=== PATIENT | male | born 1930 | race Caucasian/White ===

== ENCOUNTER → 2018-05-26 07:45 | Outpatient (CLI) | payer MEDICARE, OTHER | END | disposition home or self-care (01) | LOC: D.RAD 07:45 | PROVIDERS: ATTEND Orthopaedic Surgery | DX: M25.512 Pain in left shoulder (principal) ==

== ENCOUNTER 2018-06-24 05:15 | Day surgery (SDC) | payer MEDICARE, OTHER ==
[2018-06-18 10:28] LABS: BASOPHILS 0.6 % (0-2); EOSINOPHILS 1.5 % (0-7); HEMATOCRIT 42.4 % (42.0-54.0); HEMOGLOBIN 14.7 g/dL (13.5-17.5); IMMATURE GRANULOCYTES 0.3 % (0-5); LYMPHOCYTES 12.9 % (15-50); MCH 33.8 pg (26.0-34.0); MCHC 34.7 g/dL (31.0-37.0); MCV 97.5 fL (80.0-100.0); MEAN PLATELET VOLUME 9.8 fL (7.4-10.4); MONOCYTES 12.2 % (2-11); NEUTROPHILS 72.5 % (40-80); PLATELET COUNT 274 10x3/uL (130-400); RBC 4.35 10x6/uL (4.20-6.10); RDW 12.7 % (11.5-14.5); WBC 7.9 10x3/uL (4.8-10.8)
[2018-06-18 10:36] LABS: CALCIUM 8.9 mg/dL (8.5-10.1); CARBON DIOXIDE 31.1 mmol/L (21.0-32.0); CREATININE - SERUM 1.1 mg/dL (0.6-1.3); POTASSIUM - SERUM 4.1 mmol/L (3.5-5.1)
[~2018-06-24] VITALS: Ht 177.8 cm; Wt 79.4 kg
[~2018-06-24 05:15] MED LIST: ALPHAGAN P 0.155 ML EACH EYE; SYNTHROID75 MCG PO; XARELTO20 MG PO
[2018-06-24] MEDS ORDERED: METOPROLOL TART25 MG PO (05:56)
[2018-06-24] MEDS ORDERED: LISINOPRIL5 MG PO (05:57)
[2018-06-24] MEDS ORDERED: ZOCOR20 MG PO (05:58)
[2018-06-24 06:03] VITALS: BP 130/71; Ht 177.8 cm; Wt 79.4 kg
--- NOTE | 2018-06-24 08:37 | NUR ---
VANIA MIRANDA ON PT ALSO IN HOLDING PER MAR
--- NOTE | 2018-06-24 16:49 | NUR ---
1135 UP TO BATHROOM TO VOID WITHOUT DIFFICULTY. 1235 IV DC'D. CATHETER INTACT. PRESSURE HELD UNTIL BLEEDING STOPPED. BANDAID APPLIED.
== END 2018-06-24 13:07 | disposition home or self-care (01) ==
LOC: D.OPS 05:15 → D.PAN 07:30 → D.OPS 07:30
PROVIDERS: ATTEND Orthopaedic Surgery
DX: M65.812 Other synovitis and tenosynovitis, left shoulder (principal); M19.012 Primary osteoarthritis, left shoulder; M75.42 Impingement syndrome of left shoulder; M75.122 Complete rotator cuff tear or rupture of left shoulder, not specified as traumatic; S43.432A Superior glenoid labrum lesion of left shoulder, initial encounter; S46.112A Strain of muscle, fascia and tendon of long head of biceps, left arm, initial encounter; X58.XXXA Exposure to other specified factors, initial encounter; Z01.812 Encounter for preprocedural laboratory examination

== ENCOUNTER 2018-08-23 10:26 | Outpatient (CLI) | payer MEDICARE, OTHER | END 2018-08-23 13:00 | disposition home or self-care (01) | LOC: D.CATH 10:26 | DX: I48.91 Unspecified atrial fibrillation (principal) ==

== ENCOUNTER 2019-02-01 10:46 | Outpatient (CLI) | payer MEDICARE, OTHER ==
[~2019-02-01] VITALS: Ht 177.8 cm; Wt 77.3 kg
--- NOTE | ~2019-02-01 | HEMODYNAMI ---
PATIENT:YURY TEJADA MEDICAL RECORD: [id number] : 32 LOCATION:[facility] ADMISSION DATE: 02/01/19 Generatedon:02/01/201914:00 Patient name: YURY TEJADA Patient #: [id number] SSN: [id number] : 1930 Date of study: 02/01/2019 Page: Of Hemodynamic Procedure Report Patient Data Patient Demographics Procedure consent was obtained First Name: YURY Gender: Male Last Name: TERRELL : 1930 [facility] Initial: J Age: 88 year(s) Patient #: [id number] Race: Unknown SSN: [id number] Additional ID: [id number] Contact details [address]: [address] [place] [address] State: [place] City: [place] Zip code: [address] Past Medical History Allergies: No known allergies Admission Admission Data Admission Date: 02/01/2019 Admission Time: 10:46 Lab Results Lab Result Date: 02/01/2019 Lab Result Time: 0:00 Biochemistry Name Units Result Min Max BUN mg/dl 16 --(---*)-- 7 18 Creatinine mg/dl 1.2 --(---*)-- 0.6 1.3 eGFR ml/min 61.70362 *-(----)-- 90 120 NONAFRICAN CBC Name Units Result Min Max Hemoglobin g/dl 16.5 --(--*-)-- 13.5 17.5 Procedure Procedure Types Cath Procedure Diagnostic Procedure PPM/ICD Permanent Pacer Generator Exg. ICD GEN EXCHANGE (3 LEAD) Internal Cardiac Defib. Bi-David Sedation Charges Moderate Sedation up to 15 minutes Procedure Description Procedure Date Procedure Date: 02/01/2019 Procedure Start Time: 13:32 Procedure End Time: 13:56 Procedure Staff Name Function Justino Marquse MD Performing Physician Casey Siu MD Assisting physician Katelyn Dye RT Monitor Danielle Olivier RT Monitor Jackson Rajan RN Nurse Gabriela Apodaca RT Scrub Procedure Data Cath Procedure Fluoroscopy Diagnostic fluoroscopy Total fluoroscopy Time: 0 time: 0 min min Estimated blood loss: 5 ml Procedure Complications No complications Procedure Medications Medication Administration Route Dosage 0.9% NaCl I.V. 100 ml/hr Oxygen etCO2 Nasal cannula 2 l/min Lidocaine 1% added to field 20 Ancef (1Gm/50ml NS) I.V.P.B 1 g Ancef Irrigation Topical 1 g (1gm/500ml NS) Versed I.V. 2 mg Fentanyl I.V. 100 mcg Versed I.V. 1 mg Hemodynamics Rest Heart Rate: 80 (bpm) Snapshots Pre Cath Intra NCS Post Cath Vital Signs Time Heart Resp SPO2 etCO2 NIBP (mmHg) Rhythm Pain Sedation Rate (ipm) (%) (mmHg) Status Level (bpm) 13:20:30 70 16 100 0 166/93(141) Paced 0 (11) 10(A) , No pain 13:24:48 70 12 97 16.7 134/78(115) Paced 0 (11) 10(A) , No pain 13:28:58 69 17 99 22.1 129/68(108) Paced 0 (11) 10(A) , No pain 13:33:02 70 14 97 18.3 129/74(107) Paced 0 (11) 10(A) , No pain 13:37:10 70 16 97 22.1 117/71(94) Paced 0 (11) 9(A) , No pain 13:41:16 59 17 96 20.5 110/66(93) Paced 0 (11) 9(A) , No pain 13:46:12 69 20 96 22.1 120/70(101) Paced 0 (11) 9(A) , No pain 13:50:16 71 15 98 19.8 125/70(106) Paced 0 (11) 9(A) , No pain 13:54:22 69 15 98 18.3 129/72(106) Paced 0 (11) 9(A) , No pain Medications Time Medication Route Dose Verified Delivered Reason Notes Effectiv eness by by 13:24:02 0.9% NaCl I.V. 100 Jackson Jackson Per ml/hr Mohini Rajan physician RN RN 13:24:12 Oxygen etCO2 2 Jackson Jackson for low 02 Nasal l/min Mohini Rajan sats cannula RN RN 13:24:30 Lidocaine added 20ml Jackson Jackson for local 1% to vial Lorigan Lorigan anesthetic field X2 RN RN 13:24:44 Ancef I.V.P.B 1 g Jackson Jackson Per (1Gm/50ml Lorigan Lorigan physician NS) RN RN 13:24:57 Ancef Topical 1 g Jackson Jackson used for Irrigation Lorigan Lorigan procedure (1gm/500ml RN RN NS) 13:32:07 Versed I.V. 2 mg Jackson Jackson for Lorigan Lorigan sedation RN RN 13:32:54 Fentanyl I.V. 100 Jackson Jackson for mcg Lorigan Lorigan sedation RN RN 13:35:04 Versed I.V. 1 mg Jackson Jackson for Lorigan Lorigan sedation RN windows mobile developer Log Time Note 12:45:35 Jackson Rajan RN sent for patient. Start room use. 12:45:36 Time tracking: Regular hours (M-F 7:00 - 5:00) 12:45:48 Plan of Care:Hemodynamics will remain stable., Cardiac rhythm will remain stable., Comfort level will be maintained., Respiratory function will remain adequate., Patient/ family verbilizes understanding of procedure., Procedure tolerated without complication., Recovers from procedure without complications.. 12:56:05 Informed consent obtained and on chart 12:57:46 Lab Result : Hemoglobin 16.5 g/dl 12:57:46 Lab Result : eGFR NONAFRICAN 61.90279 ml/min 12:57:46 Lab Result : BUN 16 mg/dl 12:57:46 Lab Result : Creatinine 1.2 mg/dl 12:59:04 Medtronic cash posting representative DILLON OSBORN present for procedure. 13:00:16 Procedure Status PPM/ Gen Change/ Lead Revision/ Temp. 13:00:36 Patient received from Pre/Post Procedure Room to CCL 3 Alert and oriented. Tansferred to table in Supine position. 13:13:30 Warm blankets on for patient comfort. 13:13:57 Correct patient and procedure confirmed by team. 13:13:58 ECG and BP/O2 sat monitors applied to patient. 13:14:34 H&P Date Dictated: 02/01/2019 H&P Addendum completed by physician on day of procedure. (MUST COMPLETE FOR ALL OUTPATIENTS), New H&P dictated by physician.. 13:14:36 Pre-procedure instructions explained to patient. 13:14:38 Pre-op teaching completed and patient verbalized understanding. 13:14:41 Family in patients room. 13:14:43 Patient NPO since Midnight. 13:14:52 Patient allergic to No known allergies 13:14:58 Is the patient allergic to Iodine/contrast media? No. 13:15:04 Was the patient premedicated? Yes 13:15:08 Is patient on blood thinner?Yes 13:17:01 LAST DOSE OF XARELTO, Thursday01-30-2019. 13:17:53 Patient diabetic? No. 13:17:57 ----Pre-sedation anethsthesia assessment.---- 13:18:01 Previous problem with sedation/anesthesia? No ? 13:18:06 Snore? Yes 13:18:09 Sleep apnea? No 13:18:11 Deviated septum? No 13:18:13 Opens mouth fully? Yes 13:18:16 Sticks out tongue? Yes 13:18:26 Airway obstruction? No ? 13:18:35 Dentures? Yes BOTH IN TIGHT 13:18:44 Vital chart was started 13:19:52 Patient pain scale 0/10 ?. 13:20:01 IV patent on arrival in left hand with 0.9% NaCl at [facility]. 13:20:07 Lab results completed and on chart. 13:20:17 Left chest area was prepped with chlora-prep and draped in sterile fashion 13:20:20 Alarms reviewed by R. N. 13:20:21 Sharps counted by scrub and verified by R.N. 13:22:32 Use device set KWABENA PPM 13:22:39 2-0 Ticron Multipack ([id number]) opened to sterile field. 13:22:40 3-0 Vicryl Single Pack [id number] opened to sterile field. 13:22:41 5-0 Monocryl PS2 [id number] opened to sterile field. 13:22:43 Cautery Tip Account General Manager opened to sterile field. 13:22:44 Cautery Pushbutton Pencil opened to sterile field. 13:22:46 Mepilex Dressing ([id number]) opened to sterile field. 13:23:23 Pre sharps counted by scrub and verified by RN: Sutures: 7; Sponges: 5; Stick needles: 2; Skin needles: 0; Blade: 1; Cautery: 1 13:23:43 Grounding pad site Left thigh. 13:23:46 Grounding pad site free from injury. 13:24:02 0.9% NaCl 100 ml/hr I.V. was administered by Jackson Rajan RN; Per physician; Verbal order read back and verified. 13:24:12 Oxygen 2 l/min etCO2 Nasal cannula was administered by Jackson Rajan RN; for low 02 sats; Verbal order read back and verified. 13:24:30 Lidocaine 1% 20ml vial X2 added to field was administered by Jackson Rajan RN; for local anesthetic; Verbal order read back and verified. 13:24:44 Ancef (1Gm/50ml NS) 1 g I.V.P.B was administered by Jackson Rajan RN; Per physician; Verbal order read back and verified. 13:24:57 Ancef Irrigation (1gm/500ml NS) 1 g Topical was administered by Jackson Rajan RN; used for procedure; Verbal order read back and verified. 13:27:37 Physician arrived 13:27:38 --------ALL STOP TIME OUT------ 13:27:39 Final Timeout: patient, procedure, and site verified with staff and physician. All members of the team are in agreement. 13:27:45 Left chest site verified by team. 13:28:01 Fire Safety Assessment: A--An alcohol-based skin anteseptic being used preoperatively., B--The operative or invasive procedure is being performed above the xiphoid process or in the oropharynx., C--Open oxygen or nitrous oxide is being used. 13:28:08 Physical assessment completed. ASA score P 2 - A patient with mild systemic disease as per Justino Marques MD. 13:28:14 Sedation plan: IV Moderate Sedation Medication:Versed, Fentanyl 13::44 Baseline sample Acquired. 13:29:16 Rhythm: paced 13:29:19 Full Disclosure recording started 13:32:03 Procedure started. 13:32:07 Versed 2 mg I.V. was administered by Jackson Rajan RN; for sedation; Verbal order read back and verified. 13:32:25 Lidocaine 1% was administered to left subclavicular area by Casey Siu MD . 13:32:54 Fentanyl 100 mcg I.V. was administered by Jackson Rajan RN; for sedation; Verbal order read back and verified. 13:33:22 Claria MRI Quad RECRUITING INTERN-D SureScan ([id number]) opened to sterile field. 13:34:53 Incision made to left subclavicular area. 13:35:04 Versed 1 mg I.V. was administered by Jackson Rajan RN; for sedation; Verbal order read back and verified. 13:36:26 Generator pocket made/opened. 13:36:37 AICD was removed.. 13:37:03 AICD was inserted subcutaneously to left chest. 13:37:42 Generator was sutured in place with 2-0 ticron. 13:37:45 Device pocket was irrigated with Ancef. 13:40:34 Subcutaneous closure was completed with 3-0 vicryl plus. 13:42:49 Skin closure was completed with 5-0 monocryl. 13:46:39 Lt Chest incision was dressed with Mepilex dressing. 13:46:45 Procedure ended.(Physican Out) 13:48:07 Fluoroscopy time 00.00 minutes. 13:50:13 Post sharps counted by scrub and verified by RN: Sutures: 7; Sponges: 5; Stick needles: 2; Skin needles: 0; Blade: 1; Cautery: 1 13:51:15 Parameters-- Generator: Mode: DDDR. Lower Rate: 70bpm. Upper Rate: 130bpm. 13:51:29 Sharps counted by scrub and verified by R.N. 13:51:32 Insertion/operative site no bleeding no hematoma. 13:51:47 Post Chest area:stable 13:52:06 Post-procedure physical assessment completed. ASA score P 2 - A patient with mild systemic disease as per Justino Marques MD. 13:52:12 Post procedure rhythm: paced 13:52:16 Estimated blood loss: 5 ml 13:52:19 Post procedure instruction explained to patient.Patient verbalizes understanding. 13:52:20 Patient needs reinforcement of post procedure teaching. 13:53:23 Procedure type changed to Cath procedure, Diagnostic procedure, PPM/ICD, Permanent Pacer Generator Exg., ICD GEN EXCHANGE (3 LEAD), Internal Cardiac Defib. Bi-David, Sedation Charges, Moderate Sedation up to 15 minutes 13:53:56 Procedure and supply charges have been captured, reviewed, submitted and are correct. 13:55:43 Procedure Complication : No complications 13:55:49 Vital chart was stopped 13:55:56 Operative report dictated upon procedure completion. 13:55:57 See physician's report for complete and final results. 13:56:06 Report given to Pre/Post Procedure Room. 13:56:10 Patient transfered to Pre/Post Procedure Room with Stretcher. 13:56:14 Procedure ended. 13:56:14 Full Disclosure recording stopped 13:56:16 End room use (Document Last) Device Usage Item Name Manufacture Quantity Catalog Hospital Part Current Minima l Lot# / Serial# Number Charge Number Stock Stock Code 2-0 Ticron Ethicon 1 [id number] 5 Multipack ([id number]) 3-0 Vicryl Ethicon 1 [id number] [id number] [id number] 5 Single Pack [id number] 5-0 Monocryl Ethicon 1 [id number] 176893 885907 5 PS2 Y495G Cautery Tip Microtek 1 [id number] [id number] [id number] [id number] 5 Account General Manager [employer] Cautery Microtek 1 [id number] 89870 [id number] 5 Pushbutton [employer] Pencil Mepilex Cardinal 1 [id number] 302405 588999 243965 5 Dressing Health (929955) Claria MRI Medtronic 1 [id number] 0 [id number] Quad RECRUITING INTERN-D EXP:07/19/2019 SureScan ([id number]) Signature Audit [place] Stage Time Signature Unsigned Intra-Procedure 02/01/2019 Danielle 1:58:37 PM Charline RT(R) (CV) Intra-Procedure 02/01/2019 Jackson 1:59:04 PM Mohini OVERTON Intra-Procedure 02/01/2019 Justino Branch 2:00:24 PM Cristian [address] [id number] [place] [address]
[~2019-02-01 10:46] MED LIST changes: +LANOXIN125 MCG PO; +LISINOPRIL5 MG PO; +METOPROLOL TART25 MG PO; +MULTAQ400 MG PO; +ZESTRIL10 MG PO; +ZOCOR20 MG PO
[2019-02-01] MEDS ORDERED: ALPHAGAN P 0.155 ML EACH EYE (11:08)
[2019-02-01 11:23] VITALS: BP 149/77; Ht 177.8 cm; Wt 77.3 kg
[2019-02-01 11:33] LABS: HEMATOCRIT 48.2 % (42.0-54.0); HEMOGLOBIN 16.5 g/dL (13.5-17.5); MCH 35.3 pg (26.0-34.0); MCHC 34.2 g/dL (31.0-37.0); MEAN PLATELET VOLUME 10.1 fL (7.4-10.4); RBC 4.68 10x6/uL (4.20-6.10); RDW 12.7 % (11.5-14.5)
[2019-02-01 11:52] LABS: CALCIUM 9.1 mg/dL (8.5-10.1); CARBON DIOXIDE 29.4 mmol/L (21.0-32.0); CREATININE - SERUM 1.2 mg/dL (0.6-1.3); POTASSIUM - SERUM 4.4 mmol/L (3.5-5.1)
[2019-02-01 12:38] LABS: APTT 33.2 SECONDS (22.8-39.4); INR 1.17 (0.85-1.17); PROTIME 14.4 SECONDS (11.6-15.0)
[2019-02-01] MEDS ORDERED: HYDROCODON-ACE1 EA10 PO (13:52)
--- NOTE | 2019-02-01 14:06 | NUR ---
PT ARRIVED TO ROOM BY STRETCHER. PLACED ON MONITORS. ASSESSMENT COMPLETED. DR. YUAN ROUNDED AND SPOKE WITH PT'S DAUGHTER AT BEDSIDE.
--- NOTE | 2019-02-01 14:21 | NUR ---
PT SITTING UP DRINKING COFFEE. DENIES NAUSEA. VSS. PT 100% AV PACED AT A RATE OF 70. BP STABLE AT 110/79. CALL LIGHT WITHIN REACH. FAMILY AT BEDSIDE.
--- NOTE | 2019-02-01 14:55 | NUR ---
LEFT UPPER CHEST DRESSING C/D/I. NO S/S OF HEMATOMA NOTED. PIV D/C'D WITH CATH TIP INTACT. TOLERATED WELL. DISCUSSED DISCHARGE INSTRUCTIONS WITH PT AND PT'S FAMILY. THEY VOICED UNDERSTANDING. PT INSTRUCTED TO GET DRESSED. DAUGHTER AT BEDSIDE TO ASSIST.
--- NOTE | 2019-02-01 15:10 | NUR ---
PT TAKEN TO RESTROOM. VOIDED WITHOUT DIFFICULTY. PT TAKEN TO VEHICLE BY WHEELCHAIR. NO S/S OF DISTRESS NOTED. ALL BELONGINGS AND PAPERWORK IN HAND.
--- NOTE | 2019-02-04 11:36 | OP ---
PATIENT NAME: YURY TEJADA MEDICAL RECORD: [id number] :32 LOCATION:[facility] ADMISSION DATE: SURGEON: CATHY YUAN MD DATE OF OPERATION: 02/01/2019 PREOPERATIVE DIAGNOSES: 1. End-of-life AICD generator. 2. Cardiomyopathy. 3. Atrial fibrillation. 4. Hypertension. 5. Hyperlipidemia. POSTOPERATIVE DIAGNOSES: 1. End-of-life AICD generator. 2. Cardiomyopathy. 3. Atrial fibrillation. 4. Hypertension. 5. Hyperlipidemia. PROCEDURE: Left subclavian vein 3 lead AICD exchange. SURGEON: Cathy Yuan MD REPORT OF PROCEDURE: The patient's left chest was prepped and draped in sterile fashion. A 20 mL of 1% lidocaine with epinephrine was infused into the surrounding tissues. An oblique incision was made overlying the AICD generator. As we were able to eviscerate this through the wound, we disconnected the 3 leads and placed them into a new AICD generator. This was placed into the subcutaneous pouch and sutured down with 2-0 Ti-Cron. The wound was then irrigated out with antibiotic solution. The subcutaneous tissues were reapproximated with interrupted 3-0 Vicryl and the skin was closed with running subcutaneous 5-0 Monocryl. COMPLICATIONS: None. CONDITION: Stable. ANESTHESIA: Local MAC. BLOOD LOSS: Minimal. TRANSINT:[id number] Voice Confirmation ID: [id number] DOCUMENT ID: [id number] CATHY YUAN MD at 1136 CC: [id number] DICTATION DATE: 02/01/19 1356 POULTRY RAISER: 02/01/19 1639 DEP CLI 02/01/[address] [address]
== END 2019-02-01 15:10 | disposition home or self-care (01) ==
LOC: D.CATH 10:46
PROVIDERS: ATTEND Internal Medicine Interventional Cardiology
DX: Z45.02 Encounter for adjustment and management of automatic implantable cardiac defibrillator (principal); I42.9 Cardiomyopathy, unspecified; I48.91 Unspecified atrial fibrillation; I10 Essential (primary) hypertension; E78.5 Hyperlipidemia, unspecified